=== PATIENT | male | born 1950 | race Caucasian/White ===

== ENCOUNTER 2019-06-12 09:05 | Inpatient (IN) | payer BC, OTHER ==
[~2019-06-12] VITALS: Ht 175.3 cm; Wt 81.2 kg
[~2019-06-12 09:05] MED LIST: FINA1TAB PO; PRAV10TA PO
--- NOTE | 2019-06-12 09:19 | NUR ---
Patient JEFEDeven RA 89 from home Syncope pt states "Been battling cough/cold/congestion very little appetite last couple days got up today-fainted" noted with wound on left side of face. patient reported grazing it while falling.
[2019-06-12 09:23] LABS: BASOPHILS # (AUTO) 0.1 /CMM (0.0-0.2); BASOPHILS % (AUTO) 1.8 % (0.0-2.0); EOSINOPHILS % (AUTO) 2.7 % (0.0-6.0); HEMATOCRIT 41 % (39-51); HEMOGLOBIN 14.1 g/dL (13.5-17.5); LYMPHOCYTES # (AUTO) 0.9 /CMM (0.8-4.8); LYMPHOCYTES % (AUTO) 14.4 % (20.0-44.0); MEAN CORPUSCULAR HGB CONC 35 g/dl (31.0-36.0); MEAN CORPUSCULAR VOLUME 92 fL (80-96); MONOCYTES # (AUTO) 0.4 /CMM (0.1-1.30); MONOCYTES % (AUTO) 7.2 % (2.0-12.0); NEUTROPHILS # (AUTO) 4.6 /CMM (1.8-8.9); NEUTROPHILS % (AUTO) 73.9 % (43.0-81.0); PLATELET COUNT (AUTO) 181 /CMM (150-450); RED BLOOD CELL COUNT(AUTO) 4.45 MIL/uL (4.5-6.0); WHITE BLOOD COUNT (AUTO) 6.2 K/uL (4.3-11.0)
[2019-06-12] MEDS ORDERED: IV NS 0.9% 1,000 ML BAG IV ONE (09:30)
[2019-06-12 09:32] LABS: CARBON DIOXIDE 28 mmol/L (21-32); CHLORIDE 106 mmol/L (98-107); CREATININE 1.5 mg/dL (0.6-1.3); GLUCOSE 123 mg/dL (74-106); POTASSIUM 3.9 mmol/L (3.5-5.1); SODIUM SERUM 143 mmol/L (136-145); UREA NITROGEN, BLOOD 14 mg/dL (7-18)
[2019-06-12 09:45] LABS: ALANINE AMINOTRANSFERASE 37 U/L (12-78); ALBUMIN 3.4 g/dL (3.4-5.0); ALKALINE PHOSPHATASE 68 U/L (46-116); ASPARTATE AMINOTRANSFERASE 29 U/L (15-37); BILIRUBIN,DIRECT 0.1 mg/dL (0.0-0.2); TOTAL PROTEIN, SERUM 6.8 g/dL (6.4-8.2)
--- NOTE | 2019-06-12 10:19 | NUR ---
CALLED MATT [phone]
--- NOTE | 2019-06-12 10:48 | NUR ---
CALLED [employer] FOR TELE BED
--- NOTE | 2019-06-12 11:14 | NUR ---
GOT BED 107
[2019-06-12] MEDS ORDERED: IV NS 0.9% 1,000 ML IV PRN (11:30)
--- NOTE | 2019-06-12 11:38 | NUR ---
report given to Caity MERCEDES for eric
[2019-06-12] MEDS ORDERED: ONDANSETRON HCL/PF 4 MG/2 ML VIAL IVP PRN (12:30)
[2019-06-12] MEDS ORDERED: HYDROCODONE/APAP 5/325MG 1 EACH TABLET PO PRN (12:30)
[2019-06-12] MEDS ORDERED: MAG HYDROX/AL HYDROX/SIMETH 30 ML UDC PO PRN (12:30)
[2019-06-12] MEDS ORDERED: ZOLPIDEM TARTRATE 5 MG TABLET PO PRN (12:30)
[2019-06-12] MEDS ORDERED: ACETAMINOPHEN 325 MG TABLET PO PRN (12:30)
[2019-06-12] MEDS ORDERED: MORPHINE SULFATE INJ 2 MG/ML DISP.SYRIN IV PRN (12:30)
[2019-06-12] MEDS ORDERED: MAGNESIUM HYDROXIDE 30 ML UDC PO PRN (12:30)
[2019-06-12] MEDS ORDERED: ATORVASTATIN 10 MG TABLET PO SCH ×2 (13:00→22:00)
[2019-06-12 13:15] VITALS: BP 127/87
--- NOTE | 2019-06-12 13:45 | NUR ---
PATIENT TRANSFERRED TO [facility] VIA ACLS PROTOCOL. PATIENT TOLERATED WELL. NO ACUTE DISTRESS. RECEIVING RN AT BEDSIDE
[2019-06-12] MEDS: IV NS 0.9% 1,000 ML IV PRN (15:05)
[2019-06-12 16:00] VITALS: BP 127/67
--- NOTE | 2019-06-12 17:55 | NUR ---
kaiako kura [place] Closing Patient remains A/Ox4. Eating dinner, on room air, no SOB noted. Patient denies chest pain. Ambulated to bathroom several times, no episodes of dizziness reported. Tele monitor attached, SR HR 80s. Abrasions on L side of face + forearm, wound consult placed. R H 18G infusing NS @75mL/hr. UA sent. Patient wants flu shot upon discharge. Belongings checklist in chart. at bedside. Call light within reach. Patient verbalized understanding of symptoms to report.
--- NOTE | 2019-06-12 19:20 | NUR ---
TELE/RN NOTES RECEIVED PT. LYING IN BED. PT. IS AWAKE, ALERT AND ORIENTED X4. BREATHING EVEN AND UNLABORED ON ROOM AIR. NO SOB, RESPIRATORY DISTRESS OR COMPLAINTS OF PAIN NOTED AT THIS TIME. NO COMPLAINTS OF FEELING LIGHTHEADED OR DIZZY AT THIS TIME. PT. WITH EXTERNAL DRESSER TENDER PRESENT AND INTACT. CURRENT RHYTHM = SINUS RHYTHM HR 90. PT. WITH RIGHT HAND 18 GAUGE PERIPHERAL IV PRESENT, PATENT AND INTACT ADMINISTERING TO PT. NS @ 75 ML/HR. EDUCATED PT. ON CALLING FOR ASSISTANCE BEFORE AMBULATING. PT. VERBALIZED UNDERSTANDING. BED LOCKED AND IN LOWEST POSITION, SIDE RAILS UP X2, CALL LIGHT WITHIN REACH, WILL CONTINUE TO MONITOR.
[2019-06-12 19:29] LABS: APPEARANCE,URINE CLEAR (CLEAR); BILIRUBIN,URINE NEGATIVE (NEGATIVE); BLOOD, URINE NEGATIVE Ery/uL (NEGATIVE); COLOR,URINE YELLOW (YELLOW); KETONES,URINE NEGATIVE (NEGATIVE); LEUKOCYTE ESTERASE ,URINE NEGATIVE (NEGATIVE); NITRITE, URINE NEGATIVE (NEGATIVE); PH,URINE 6.5 (5.0-8.0); PROTEIN,URINE NEGATIVE (NEGATIVE); UGLUCOSE NEGATIVE (NEGATIVE)
[2019-06-12 20:00] VITALS: BP 107/67
--- NOTE | 2019-06-12 23:35 | NUR ---
TELE/RN NOTES REPORT GIVEN AND PT. ENDORSED TO MAGO RODRIGEZ FOR CONTINUITY OF CARE.
--- NOTE | 2019-06-12 23:40 | NUR ---
TELE/RN NOTES: RECEIVED REPORT FROM SARWAT FOR CONTINUITY OF CARE. WILL CONTINUE MONITORING PT ACCORDINGLY.
[2019-06-13] VITALS: BP 106/62
[2019-06-13 04:00] VITALS: BP_SYST 110; BP_SYST 111; BP_SYST 117; BP_DIAS 64; BP_DIAS 67; BP_DIAS 68
[2019-06-13] MEDS: IV NS 0.9% 1,000 ML IV PRN (04:00)
[2019-06-13 06:48] LABS: BASOPHILS % (AUTO) 0.7 % (0.0-2.0); EOSINOPHILS % (AUTO) 3.4 % (0.0-6.0); HEMATOCRIT 36 % (39-51); HEMOGLOBIN 12.7 g/dL (13.5-17.5); LYMPHOCYTES # (AUTO) 1.1 /CMM (0.8-4.8); LYMPHOCYTES % (AUTO) 20.4 % (20.0-44.0); MEAN CORPUSCULAR HGB CONC 35 g/dl (31.0-36.0); MEAN CORPUSCULAR VOLUME 91 fL (80-96); MONOCYTES # (AUTO) 0.5 /CMM (0.1-1.30); MONOCYTES % (AUTO) 9.2 % (2.0-12.0); NEUTROPHILS # (AUTO) 3.6 /CMM (1.8-8.9); NEUTROPHILS % (AUTO) 66.3 % (43.0-81.0); PLATELET COUNT (AUTO) 160 /CMM (150-450); RED BLOOD CELL COUNT(AUTO) 3.97 MIL/uL (4.5-6.0); WHITE BLOOD COUNT (AUTO) 5.4 K/uL (4.3-11.0)
--- NOTE | 2019-06-13 06:51 | NUR ---
TELE/RN NOTES: Patient remains A/Ox4. On room air, no SOB noted. Patient denies any pain. Tele monitor attached, SR HR on the 90s. Abrasions on L side of face + forearm, wound consult to be done this morning. R H 18G infusing NS @75mL/hr. Patient wants flu shot upon discharge. Call light within reach. All need met and provided. Will endorse to day shift nurse for JONG.
[2019-06-13 07:18] LABS: ALBUMIN 2.9 g/dL (3.4-5.0); BILIRUBIN,TOTAL 1.2 mg/dL (0.2-1.0); CALCIUM, SERUM 8.3 mg/dL (8.5-10.1); CREATININE 1.2 mg/dL (0.6-1.3); MAGNESIUM 2.1 mg/dL (1.8-2.4); PHOSPHORUS 2.8 mg/dL (2.5-4.9); POTASSIUM 4.1 mmol/L (3.5-5.1); TOTAL PROTEIN, SERUM 5.9 g/dL (6.4-8.2)
[2019-06-13 07:25] LABS: THYROID STIMULATING HORMONE 2.065 uIU/mL (0.358-3.74)
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
[2019-06-13 08:00] VITALS: BP 130/76
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
[2019-06-13] MEDS ORDERED: FINASTERIDE 1 MG PO SCH (09:00)
[2019-06-13 10:13] VITALS: BP 130/76
[2019-06-13] MEDS ORDERED: INFLUENZA VACCINE 2019-20 0.5 ML DISP.SYRIN IM ONE (11:00)
--- NOTE | 2019-06-13 12:08 | NUR ---
PT HAS BEEN DC. PATIENT LEFT IN STABLE CONDITION BY WALKING. PT PICKED HIM UP IN PRIVATE CAR. PT HAD GOOD UNDERSTANDING OF HEALTH, IV SITE WAS REMOVED, BELONGINGS LIST WAS CHECKED OFF. EXIT CARE WAS UTILIZED DURING DC PROCESS.
== END 2019-06-13 12:00 | disposition home or self-care (01) | DRG 73 ==
LOC: ER 09:10 → TELE1 12:05 → MEDSG1 06-13 10:20
PROVIDERS: ADMIT Nurse Practitioner Acute Care; ATTEND Nurse Practitioner Acute Care
DX: G90.8 Other disorders of autonomic nervous system (principal); N17.0 Acute kidney failure with tubular necrosis; E86.1 Hypovolemia; B34.9 Viral infection, unspecified; R73.9 Hyperglycemia, unspecified; S00.81XA Abrasion of other part of head, initial encounter; S40.812A Abrasion of left upper arm, initial encounter; W18.30XA Fall on same level, unspecified, initial encounter; Y92.89 Other specified places as the place of occurrence of the external cause; E78.5 Hyperlipidemia, unspecified; N40.0 Benign prostatic hyperplasia without lower urinary tract symptoms; E86.0 Dehydration
CPT/HCPCS: 36415; 71045-TC; 80048-TC; 80053-TC; 80061-TC; 80076-TC; 81000-TC; 83735-TC; 84100-TC; 84443-TC; 84484-TC; 85025-TC; 87081-TC; 93307-TC; A6253; G0378; J7030; Q2036